=== PATIENT | female | born 2000 | race Caucasian/White ===

== ENCOUNTER → 2022-02-04 12:11 | Outpatient (CLI) | payer OTHER, SELFPAY ==
--- NOTE | 2022-02-04 12:16 | DI.US.S_ITS ---
PROCEDURE: US OB <= 14 WEEKS FETUS INDICATIONS: TV and abdominal US for dating and viability OUTSIDE/PRIOR DATING DATA: Last menstrual period (LMP): 11/28/2021 LMP-based estimated date of delivery (MELISSA): 09/04/2022. First dating scan (date and location): 02/04/2022. Estimated date of delivery (MELISSA) from first dating scan: 09/08/2022 The calculations are made using the ultrasound generated MELISSA of 09/08/2022. TECHNIQUE: Real-time scanning was performed of the fetus and maternal pelvic organs, with image documentation. Endovaginal scanning was also performed to better visualize the fetus and maternal ovaries. COMPARISON: None. FINDINGS: Gestational sac containing a fetus with a crown-rump length of 2.5 cm, corresponding to gestational age of 9 weeks 2 days. heart rate measured at 175 beats per minute. Ovaries normal. Left corpus luteum cyst. IMPRESSION: Single live intrauterine gestation with estimated ultrasound age of 9 weeks 2 days. We strive to produce accurate, complete, and clear reports of imaging services. To assist us in improving patient care, this report was composed using standard report templates and voice recognition software. Therefore, it may contain abnormal punctuation, insertions and/or omissions. Occasional wrong-word or sound-alike substitutions may occur. Though we review the report and make efforts to correct it, we do recommend that the report be read carefully in proper context to recognize any text inaccuracies. Dictated by: Francisco Dubois M.D. on 02/04/2022 at 13:27 Approved by: Francisco Dubois M.D. on 02/04/2022 at 13:30
== END ==
PROVIDERS: Referring Provider Obstetrics & Gynecology; Visit Provider Obstetrics & Gynecology
DX: Z34.81 Encounter for supervision of other normal pregnancy, first trimester (principal); Z3A.09 9 weeks gestation of pregnancy
CPT/HCPCS: 36415; 76801; 76817; 80055; 81003; 86787; 86803; 86850; 86900; 86901; 87086; 87389

== ENCOUNTER → 2022-02-04 12:47 | Outpatient (CLI) | payer OTHER, SELFPAY ==
[2022-02-04 13:42] LABS: Add Manual Diff / Slide Review NO; Basophils Absolute Auto 0 /uL (0-100); Basophils Percent Auto 0.3 % (0-2); Eosinophils Absolute Auto 100 /uL (0-450); Eosinophils Percent Auto 0.7 % (2-4); Hematocrit 38.2 % (36-46); Hemoglobin 13.7 g/dL (12.0-16.0); Lymphocytes Absolute Auto 1800 /uL (1100-4500); Lymphocytes Percent Auto 16.3 % (25-40); Mean Corpuscular HGB Conc 35.8 % (30-36); Mean Corpuscular Hemoglobin 30.2 PG (26-34); Mean Corpuscular Volume 84.5 fL (80-100); Monocytes Absolute Auto 700 /uL (0-900); Monocytes Percent Auto 6.4 % (3-14); Neutrophils Absolute Auto 8500 /uL (1500-7000); Neutrophils Percent Auto 76.3 % (50-75); Platelet Count 192 X10^3/uL (150-400); Red Blood Cell Count 4.52 X10^6/uL (4.0-5.2); Red Cell Distribution Width 13.2 % (11.6-14.8); White Blood Cell Count 11.2 X10^3/uL (4.5-11.0)
[2022-02-04 14:10] LABS: Appearance Urine UA CLEAR; Bilirubin Urine UA NEGATIVE (NEGATIVE); Color Urine UA YELLOW; Glucose Urine UA NEGATIVE (Negative); Ketones Urine UA NEGATIVE (NEGATIVE); Leukocyte Esterase Urine UA NEGATIVE (NEGATIVE); Nitrite Urine UA NEGATIVE (Negative); Occult Blood Urine UA NEGATIVE (Negative); Protein Urine UA NEGATIVE (Negative); Specific Gravity Urine UA <=1.005 (1.000-1.035); Urobilinogen Urine UA 0.2 E.U./dL (0.2)
[2022-02-04 15:47] LABS: Hepatitis B Surface Antigen NEGATIVE s/c (NEGATIVE); Rubella Antibody IgG 13.3 IU/mL (>15)
[2022-02-04 15:58] LABS: HIV 1 & 2 Ab/Ag 4th Gen Combo NEGATIVE (NEGATIVE); Hep C Virus Ab w/Reflex Quant NEGATIVE s/c (NEGATIVE)
[2022-02-05 08:28] LABS: RPR Screen Non Reactive (Non Reactive); Varicella IgG Antibody 195 index (Immune >165)
== END ==
PROVIDERS: Obstetrics & Gynecology; Referring Provider Family Medicine; Visit Provider Family Medicine
DX: Z34.81 Encounter for supervision of other normal pregnancy, first trimester (principal)
CPT/HCPCS: 36415; 80055; 81003; 86787; 86803; 86850; 86900; 86901; 87086; 87389

== ENCOUNTER → 2022-04-22 10:31 | Outpatient (CLI) | payer OTHER, SELFPAY ==
--- NOTE | 2022-04-22 10:32 | DI.US.S_ITS ---
PROCEDURE: US OB >= 14 WEEKS FETUS INDICATIONS: ANATOMY OUTSIDE/PRIOR DATING DATA: Last menstrual period (LMP): 11/28/2021 LMP-based estimated date of delivery (MELISSA): 09/04/2022. First dating scan (date and location): 02/04/2022. Estimated date of delivery (MELISSA) from first dating scan: 09/08/2022. The calculations are made using the ultrasound MELISSA of 09/08/2022. TECHNIQUE: Real-time scanning was performed of the fetus, with image documentation and biometric measurements. COMPARISON: [facility], OB <= 14 WEEKS FETUS, 02/04/2022, 12:26. FINDINGS: General: A single living intrauterine gestation is present. Presentation: breech. Placenta: Placental position is anterior, without previa. Amniotic fluid index: 16 cm, normal range is 5-24 cm. Single deepest vertical pocket is 5.9 cm. heart rate: 147 beats per minute. Maternal cervical canal: 3.2 cm long. Normal lower limit is 2.5 cm. biometrics: Biparietal diameter: 20 weeks 4 days Head circumference: 20 weeks 3 days Abdominal circumference: 21 weeks 1 day Femur length: 19 weeks 6 days Clinically estimated gestational age: 20 weeks 1 day Composite gestational age from present scan: 20 weeks 4 days Estimated weight and percentile: 360 g; 68th percentile Anatomic survey: Neuro: Ventricles are non-dilated at less than 10 mm. Cisterna magna is normal at 3-11 mm. Cerebellum is normal in size and morphology. Nuchal skin fold: Normal at less than 6 mm between 14-21 weeks gestational age. Face: Nose and lips, facial profile are normal. Spine: No evidence for spina bifida. Heart: 4-chambered heart is present, with normal ventricular outflow tracts. Diaphragm: Diaphragm is intact. Stomach: Left-sided stomach is present with small amount of intraluminal debris Kidneys: No hydronephrosis. Normal is less than 5 mm in 2nd trimester, less than 7 mm in 3rd trimester. Cord: 3-vessel cord has orthotopic insertion. Bladder: Normal in size. Extremities: All 4 extremities identified. IMPRESSION: 1. Single living IUP redemonstrated and interval growth is normal. 2. Small amount of intraluminal debris within the stomach; otherwise normal anatomic survey. We strive to produce accurate, complete, and clear reports of imaging services. To assist us in improving patient care, this report was composed using standard report templates and voice recognition software. Therefore, it may contain abnormal punctuation, insertions and/or omissions. Occasional wrong-word or sound-alike substitutions may occur. Though we review the report and make efforts to correct it, we do recommend that the report be read carefully in proper context to recognize any text inaccuracies. Dictated by: Dick ELAINE Interpreted: Ming Brooks MD on 04/22/2022 at 12:23 Transcribed by: BRYANT on 04/22/2022 at 12:26 Approved by: Ming Brooks M.D. on 04/22/2022 at 21:20
== END ==
PROVIDERS: Referring Provider Nurse Practitioner Obstetrics & Gynecology; Visit Provider Nurse Practitioner Obstetrics & Gynecology
DX: Z34.82 Encounter for supervision of other normal pregnancy, second trimester (principal); Z3A.20 20 weeks gestation of pregnancy
CPT/HCPCS: 76811

== ENCOUNTER 2022-09-10 14:49 | Inpatient (IN) | payer OTHER, SELFPAY ==
--- NOTE | 2022-09-10 15:06 | PM.OBHP.1 ---
OB HPI Date/Time Date of admission: 09/10/22 Date Patient Seen: 09/10/22 Time Patient Seen: 15:06 History of Present Condition Chief complaint: OBS : 2 Para: 1 Estimated Date of Delivery: 09/04/22 Estimated Gestational Age (weeks): 40w6d Narrative: Helen Romero is a 22 year old female, at 40w6d by LMP and early ultrasound. She has been taj all day, and called with increasing contractions, here to evaluate labor progress. At home, contractions were every 4-5 minutes for multiple hours, getting progressively painful. She is here with her , Doni. She has had a normal . She thinks this baby is about the same size as her first. History of Present care: good care, initiated at week # (14), number of visits (12) and pounds weight gain (35) Dating criteria: LMP confirmed by 1st trimester US Ultrasounds: normal mid trimester US Obstetrical complications: none Medical complications: none Preadmission Labs Blood type: 0 (-) negative -: Antibody screen: negative, GBS status: negative, HBsAG: negative, HIV: negative and RPR/VDLR: negative -: Rubella: equivocal and Varicella: immune HCT: 33.9 HCAB: negative Cell-free DNA: negative 1 hr GTT: 55 Prior (ies) History: with 2nd degree lac and shoulder dystocia resolved with Angélica in 03/2020. Baby was 8#14 at 40w6d. Evaluation Evaluation Baseline heart rate: 145 Variability: Moderate (11-25) monitor accelerations: Present Monitor Decelerations: Absent Contraction Frequency (minutes): 4 Uterine Contraction Intensity: Strong/Firm Status: Category l Dilation (cm): 6 Effacement (%): 80 Dilation: >/=5 cm Effacement: >/=80% station: -2 Position of cervix: mid Consistency: soft Preston score: 10 PFSH Medical History Anemia affecting first (~2006) Irregular menstrual cycle (~2019) Irritable bowel syndrome (~2011) depression Rh negative state in antepartum period Surgical History Anesthesia History of adenoidectomy (~2001) History of endoscopy (~2012) History of tonsillectomy (~2004) Family History Grandfather Prostate cancer Lung cancer Grandfather Prostate cancer Mother hemorrhage Grandmother Multiple sclerosis Social History marital status: number of children: 1 household members: spouse and children lives independently: Yes housing: house pets and animals: Yes (1 dog ) education level: high school occupational status: employed current occupational exposures/hazards: No special justin needs: No seatbelt use: always water heater temp set < 120 deg: Yes working smoke detector in home: Yes fire extinguisher in home: Yes carbon monox detector in home: Yes firearms in home: Yes firearms unloaded and locked: Yes do you feel safe at home: Yes Smoking Status: Never smoker second hand exposure: No alcohol intake: former substance use type: marijuana (previously) during the past year weight has: remained stable well-balanced diet: daily or most days daily servings fruits/ve-4 caffeine: Yes Type(s) of exercise: walking and running frequency: 3-4 times per week Meds Home Medications and Allergies Home Medications Medication Instructions Recorded Confirmed Type ferrous sulfate 325 mg (65 mg 325 mg PO Q OTHER DAY 01/19/22 01/19/22 History iron) tablet prenat.vits,mukul,mit-[id number]-[id number] 1 tab PO DAILY 01/19/22 01/19/22 History Allergies Allergy/AdvReac Type Severity Reaction Status Date / Time No Known Allergies Allergy Verified 01/19/22 12:00 Review of Systems Review of Systems ROS: Yes All systems reviewed with the patient and are negative except as otherwise documented OB Exam Vital signs Blood Pressure: 128/74 Pulse Rate: 98 Respiratory Rate: 16 Temperature: 97.8 F HENMT Head: normocephalic Mouth: moist mucous membranes Eyes General: appearance normal, both eyes and all related structures Resp Effort & Inspection: normal respiratory effort and able to speak in complete sentences Cardio Rate: regular rate Rhythm: regular rhythm Heart Sounds: S1 normal and S2 normal Extremities Lower extremity: Yes normal to inspection DTR's: Rt Patellar: 2+ and Lt Patellar: 2+ GI Other: Gravid External Female Exam: Yes normal external appearance Presentation: vertex Estimated Weight (lbs): 9 (8#14) Other: Intact membranes Objective Labs Result Diagrams: 09/10/22 15:20 Assessment and Plan Assessment and Plan Assessment and Plan narrative: 22 year old at 40w6d Spontaneous, active labor GBS neg Rubella non-immune Rh negative FHR Cat 1, green Intact membranes Plan: Admit to L&D Intermittent monitoring IV to be placed, admit labs collected Anticipate Time Spent with Patient Total time spent with greater than 50% in coordination of care (as documented) at patient's floor/unit and/or counseling patient:: 15-24 minutes
[2022-09-10 15:29] VITALS: BP 128/74; PULSE 98; RESP 16; TEMP 36.6
[2022-09-10 15:42] LABS: Add Manual Diff / Slide Review NO; Basophils Absolute Auto 100 /uL (0-100); Basophils Percent Auto 0.3 % (0-2); Eosinophils Absolute Auto 100 /uL (0-450); Eosinophils Percent Auto 0.6 % (2-4); Hematocrit 35.1 % (36-46); Hemoglobin 12.3 g/dL (12.0-16.0); Lymphocytes Absolute Auto 2300 /uL (1100-4500); Lymphocytes Percent Auto 11.8 % (25-40); Mean Corpuscular HGB Conc 35.1 % (30-36); Mean Corpuscular Volume 91.3 fL (80-100); Monocytes Absolute Auto 1200 /uL (0-900); Monocytes Percent Auto 6.2 % (3-14); Neutrophils Absolute Auto 15500 /uL (1500-7000); Neutrophils Percent Auto 81.1 % (50-75); Platelet Count 124 X10^3/uL (150-400); Red Blood Cell Count 3.84 X10^6/uL (4.0-5.2); Red Cell Distribution Width 13.6 % (11.6-14.8); White Blood Cell Count 19.1 X10^3/uL (4.5-11.0)
[2022-09-10 15:54] LABS: COVID19 -Nasal RAPID Negative (Negative)
[2022-09-10 15:59] VITALS: BP 128/74
--- NOTE | 2022-09-10 19:48 | PM.OBPNLAB ---
Date/Time Date Patient Seen: 09/10/22 Time Patient Seen: 19:48 Pain Control Pain control: tolerating well Comments: S: Helen feeling increasing pelvic pressure. Contractions increasing in intensity. Feeling contractions every 2-3 minuutes. Walking and sitting on Cuby. VS: BP 128/79; HR 98; Temp 36.6C Pelvic Exam Dilation (cm): 7.5 Effacement (%): 90 station: -1 Amniotic membrane status: Intact Comments: soft, mid Contractions Contraction frequency (min): 2 Contraction intensity: Strong/Firm Status status: Category l Assessment and Plan Comments: ASSESSMENT: 33 yo at 40w6d Active labor. Progressing normally. Membranes intact GBS neg Reassuring by intermittent auscultation PLAN: Continue to labor Anticipate vaginal
--- NOTE | 2022-09-11 00:24 | P.PCNOB_ITS ---
Events: Other (Good care. Rh negative. Rubella non-immune. ) Labor & Delivery Delivery date: 09/10/22 Intrapartal Events: None Cervical ripening method: none Induction method: none Delivery monitor: external FHT and external uterine Route of delivery: L&D Laceration Description: Periurethral - 1st Degree Delivery repair: other (none) Quantitative Blood Loss: 400 Anesthesia Type: None Complications: none Narrative: Helen labored well throughout the day. FHR reassuring by doppler throughout labor. SROM of clear fluid with spontaneous urge to push soon after. Leaning on the CUB with support from Doni, Helen pushed effectively to deliver her vigorous son, Reina, at 2333. Reina was handed through her legs for Helen to receive. Perineum intact. NAVEEN clamped and Doni cut the cord. Placenta delivered spontaneously, Agustin at 2345. Pitocin given IV for third stage management. Intact perineum. L periurethral laceration hemostatic and not repaired. QBL 400 mL. Helen and Doni left with baby Reina and initiated approx 30 min after . [place] Baby 1: gender: Male Presentation: vertex Position: Left Occiput Anterior Placenta delivery description: Spontaneous Cord Vessel Description: 3 Vessels score (1 min): 8 score (5 min): 9 Narrative: Plan for aftercare: Routine care
[2022-09-11 01:58] VITALS: TEMP 36.7
[2022-09-11] MEDS: ACETAMINOPHEN 325 MG TABLET 650 MG PO (01:58)
[2022-09-11] MEDS: KETOROLAC 30 MG/ML VIAL IV (01:58)
[2022-09-11] MEDS: IBUPROFEN 600 MG TABLET PO ×2 (08:26→14:04)
--- NOTE | 2022-09-11 14:57 | PM.OBDS.1 ---
Discharge Providers Provider Date of admission: 09/10/22 14:49 Discharge Date: 09/11/22 Primary care physician: Javy VALENTIN Provider Consults: 09/11/22 23:52 Consult to Telemarketing Fundraiser Routine Comment: Discharge provider: Berenice Grayson CNM, ARNP Summary Hospital Course Date Patient Seen: 09/11/22 Time Patient Seen: 14:58 Diagnoses: O80 Hospital Course: Helen arrived in spontaneous labor. Progressed well to complete and had a short 2nd stage with intact perineum and normal blood loss. Normal course. well. Pain well controlled with PO medications. Light bleeding w/o clots. Independently stooling and voiding. Peripartum Data Delivery Method: Natural Vaginal Laceration Description: None and Periurethral - 1st Degree Episiotomy description: None Procedures: NSVB complications: none 1: Gender: Male Disposition of : home Discharge Diagnosis (1) Encounter for full-term uncomplicated delivery: Start Date: 09/10/22 Start Time: 23:33 Status: Acute Problem Details: Normal course. (2) RhD negative: Status: Acute Problem Details: Rh pos. Rhogam given prior to discharge. (3) Rubella non-immune status, delivered, current hospitalization: Status: Acute Problem Details: MMR given prior to discharge. Status at Discharge Cognitive/behavioral status at discharge: oriented and calm Functional status at discharge: independent ambulation Overall status at discharge: patient is progressing back to baseline Time Spent with Patient Time attestation: Total time spent providing and/or coordinating discharge services: Time spent: Less than 30 minutes Specific discharge activities: discharge teaching Objective Labs Result Diagrams: 09/10/22 15:20 Labs: Laboratory Results - last 24 hr 09/10/22 09/10/22 09/10/22 15:20 15:20 15:20 WBC 19.1 H RBC 3.84 L Hgb 12.3 Hct 35.1 L MCV 91.3 MCH 32.0 MCHC 35.1 RDW 13.6 Plt Count 124 L Neut % (Auto) 81.1 H Lymph % (Auto) 11.8 L [place] % (Auto) 6.2 Eos % (Auto) 0.6 L Baso % (Auto) 0.3 Neut # (Auto) 22266 H Lymph # (Auto) 2300 [place] # (Auto) 1200 H Eos # (Auto) 100 Baso # (Auto) 100 SARS-CoV-2 (PCR) Negative Blood Type O Negative Antibody Screen Positive Antibody Identification Anti-D Maternal Bleed 09/11/22 07:00 WBC RBC Hgb Hct MCV MCH MCHC RDW Plt Count Neut % (Auto) Lymph % (Auto) [place] % (Auto) Eos % (Auto) Baso % (Auto) Neut # (Auto) Lymph # (Auto) [place] # (Auto) Eos # (Auto) Baso # (Auto) SARS-CoV-2 (PCR) Blood Type Antibody Screen Antibody Identification Maternal Bleed Negative Exam Vital Signs (past 8 hours): 100/64, 68 bpm, 16/min, 97.6 F temporal, O2 sats 99% Other: Fundus firm at U, midline. Lochia scant Perineum intact with minimal edema Discharge Plan Discharge Plan Patient Disposition: Home Provider Discharge Comment: after Rhogam and MMR Discharge orders & Medications Prescriptions: New ibuprofen 600 mg Tablet 600 mg PO Q6HR PRN (Reason: Pain, Mild (1-3)) 14 Days Qty: 60 0RF Continued prenat.vits,mukul,jsq-ifbn-hhwts Tablet 1 tab PO DAILY ferrous sulfate 325 mg (65 mg iron) tablet 325 mg PO Q OTHER DAY Label Comments: discontinued medication Follow up/Referrals: ProviderJavy [Primary Care Provider] - Berenice Grayson CNM, HUMAN RESOURCES OPERATIONS SPECIALIST [Advanced Communications Coordinator] - (Follow up in 2 weeks on 09/24/22 at 12: 45 Follow up in 6 weeks on 10/22/22 at 2:45 pm) Diet/Activity/Treatments Diet: Diet as Tolerated Activity: Avoid intercourse until bleeding stops. Low newman activity x 2 weeks. Skin/Wound/Dressing Care Report to your healthcare provider any signs of infection, such as:: chills, fever, increased pain and unusual redness Visit Report/Discharge Packet Instructions: DI for Depression Stand Alone Forms: Patient Portal/API, Stroke Signs & Symptoms Discharge Data Primary Care Provider: ProviderJavy
[2022-09-11] MEDS: MEASLES,MUMPS,RUBELLA VACC/PF 0.5 ML VIAL SUBCUT (17:39)
[2022-09-11] MEDS: RHO(D) IMMUNE GLOBULIN 1,500 UNIT SYRINGE 1500 UNIT IM (17:40)
== END 2022-09-11 18:00 | disposition home or self-care (01) | DRG 807 ==
PROVIDERS: Advanced Practice Midwife; Admitting Provider Nurse Practitioner Obstetrics & Gynecology; Referring Provider Nurse Practitioner Obstetrics & Gynecology; Visit Provider Nurse Practitioner Obstetrics & Gynecology
DX: O36.0130 Maternal care for anti-D [Rh] antibodies, third trimester, not applicable or unspecified (principal); Z37.0 Single live birth; Z3A.40 40 weeks gestation of pregnancy; Z67.41 Type O blood, Rh negative; Z23 Encounter for immunization; Z20.822 Contact with and (suspected) exposure to COVID-19
CPT/HCPCS: 36415; 59050; 85025; 85461; 86850; 86870; 86900; 86901; 87635; C9803; G0379; J1885; J2790

== ENCOUNTER 2025-04-28 19:02 | Inpatient (IN) | payer OTHER, SELFPAY ==
[2025-04-28] VITALS (10 sets, daily range): BP systolic 98–117; BP diastolic 58–80; PULSE 74–96; RESP 16–35; TEMP 36.8; O2SAT 77–100; BMI 20.5
--- NOTE | 2025-04-28 19:30 | EKG_ITS ---
[address] [address] Test Date: 2025-04-28 Pat Name: Helen Romero Department: [facility] Room: Gender: Female Dental Instructor: MATT JIMENEZ : 2000 Requested By: Order Number: [id number] Reading MD: Darrel Stafford Measurements Intervals [place] Rate: 74 P: 78 CA: 144 QRS: 85 QRSD: 90 T: 68 QT: 376 QTc: 417 Interpretive Statements Normal sinus rhythm Electronically Signed On 05-06-2025 16:03:39 PDT by Darrel Stafford
[2025-04-28 19:34] LABS: Add Manual Diff / Slide Review NO; Hematocrit 39.1 % (36-46); Hemoglobin 13.4 g/dL (12.0-16.0); Lymphocytes Absolute Auto 2400 /uL (1100-4500); Mean Corpuscular HGB Conc 34.3 % (30-36); Mean Corpuscular Hemoglobin 29.5 PG (26-34); Mean Corpuscular Volume 86.1 fL (80-100); Platelet Count 165 X10^3/uL (150-400)
[2025-04-28] MEDS: SODIUM CHLORIDE 0.9% 1,000 ML 1000 ML IV (19:35)
[2025-04-28 19:41] LABS: Alanine Aminotransferase 35 IU/L (<35); Albumin 4.9 g/dL (3.5-5.0); Albumin Globulin Ratio 1.5 (1.0-2.8); Alkaline Phosphatase 64 U/L (38-126); Blood Urea Nitrogen 15 mg/dL (7-17); Calcium 9.6 mg/dL (8.4-10.2); Carbon Dioxide 25 mmol/L (22-32); Chloride 103 mmol/L (98-107); Estimated Glomerular Filt Rate > 60 mL/min (>60); Globulin 3.2 g/dL (1.7-4.1); Glucose 94 mg/dL (70-99); HEMOLYSIS < 15 (0-50); Lipase 113 U/L (23-300); Potassium 3.3 mmol/L (3.4-5.1); Sodium 140 mmol/L (137-145); Total Protein 8.1 g/dL (6.3-8.2)
--- NOTE | 2025-04-28 21:20 | ED_ITS ---
HPI - Abdominal Pain General Chief Complaint: Abdominal Pain Stated Complaint: intense pain under ribs Time Seen by Provider: 04/28/25 19:21 Source: patient, RN notes reviewed and old records reviewed Mode of arrival: Ambulatory Limitations: no limitations History of Present Illness HPI narrative: 24-year-old female who presents with complaint of pain that started epigastric and radiating to the right underneath her ribs toward her right back. She states she had diarrhea earlier in the evening and then at about 1900 developed quite a bit of pain states she got very sweaty, states that improved but pain has been persistent. Has not had similar pain in the past. States no black or bloody stools. No dysuria urgency or frequency. No new changes to menses. Patient states she has not had any fevers. Has a history of IBS states she takes Imodium intermittently but no other daily medications. Related Data Home Medications ?Medication ?Instructions ?Recorded ?Confirmed ferrous sulfate 325 mg (65 mg 325 mg PO Q OTHER DAY 09/10/22 iron) tablet prenat.vits,mukul,[id number] 1 tab PO DAILY 01/19/22 09/10/22 Allergies Allergy/AdvReac Type Severity Reaction Status Date / Time No Known Allergies Allergy Verified 01/19/22 12:00 Review of Systems Review of Systems ROS Unobtainable: All systems reviewed & are unremarkable except as noted in HPI and below Patient History Medical History Irregular menstrual cycle (~2019) Irritable bowel syndrome (~2011) depression Anemia affecting first (~2006) Rh negative state in antepartum period Surgical History Anesthesia History of endoscopy (~2012) History of adenoidectomy (~2001) History of tonsillectomy (~2004) Family History Grandfather Prostate cancer Lung cancer Grandfather Prostate cancer Mother hemorrhage Grandmother Multiple sclerosis Social History marital status: number of children: 1 household members: spouse and children lives independently: Yes housing: house pets and animals: Yes (1 dog ) education level: high school occupational status: employed current occupational exposures/hazards: No special justin needs: No seatbelt use: always water heater temp set < 120 deg: Yes working smoke detector in home: Yes fire extinguisher in home: Yes carbon monox detector in home: Yes firearms in home: Yes firearms unloaded and locked: Yes do you feel safe at home: Yes Smoking Status: Never smoker second hand exposure: No alcohol intake: former substance use type: marijuana (previously) during the past year weight has: remained stable well-balanced diet: daily or most days daily servings fruits/ve-4 caffeine: Yes Type(s) of exercise: walking and running frequency: 3-4 times per week Smoking Status: Never smoker Exam Narrative Exam Narrative: GENERAL: Alert and oriented x three, female in mild distress HEENT: Head normocephalic, atraumatic, EOMI, pupils reactive, face symmetric, moist mucous membranes NECK: Supple, full range of motion CARDIOVASCULAR: Regular rate and rhythm without murmurs, rubs or gallops. RESPIRATORY: Breath sounds equal bilaterally, no wheezes rales or rhonchi. ABDOMEN: Soft, nontender. Normoactive bowel sounds all 4 quadrants. No guarding or rebound, rigidity, no mass : No CVA tenderness EXTREMITIES: Normal range of motion, no clubbing or edema. Neurovascularly intact NEUROLOGICAL: Cranial nerves II through XII grossly intact. Moving all extremities SKIN: Warm, dry, no petechiae, no rashes or lesions. Initial Vital Signs Initial Vital Signs: Vital Signs Temperature 98.3 F 04/28/25 19:06 Pulse Rate 81 04/28/25 19:06 Respiratory Rate 20 04/28/25 19:06 Blood Pressure 109/80 04/28/25 19:06 Pulse Oximetry 100 04/28/25 19:06 Oxygen Delivery Method Room Air 04/28/25 19:06 Course Orders Ordered: ED Orders 04/28/25 19:11 EKG-12 Lead Stat 04/28/25 19:20 Complete Blood Count AUTO DIFF Stat Comprehensive Metabolic Panel Stat Lipase Stat 04/28/25 20:30 Urine Microscopic Stat 04/28/25 21:32 US abdomen limited Stat Sodium Chloride (Normal Saline 0.9%) 1,000 mls @ 125 mls/hr IV CONT SHAMIR Piperacillin Sod/Tazobactam (Sod 4.5 gm/ Sodium Chloride) 100 mls @ 25 mls/hr IV Q8H SHAMIR Ketorolac Tromethamine (Ketorolac 30 Mg/Ml Vial) 15 mg IV Q6H PRN PRN Reason: Pain, Moderate (4-6) Stop: 05/03/25 23:19 Ondansetron HCl (Ondansetron 4 Mg/2 Ml Inj) 4 mg IV NOW PRN PRN Reason: Nausea And Vomiting Ondansetron HCl (Ondansetron 4 Mg/2 Ml Inj) 4 mg IV Q4HR PRN PRN Reason: Nausea And Vomiting Discontinued Medications Sodium Chloride (Normal Saline 0.9%) 1,000 mls @ 1,000 mls/hr IV BOLUS ONE Stop: 04/28/25 20:20 Last Infusion: 04/28/25 20:48 Dose: Infused Documented By: Admin: 04/28/25 19:35 Dose: 1,000 mls/hr Documented By: JEROME Piperacillin Sod/Tazobactam (Sod 4.5 gm/ Sodium Chloride) 100 mls @ 200 mls/hr IV NOW ONE Stop: 04/28/25 23:16 Ketorolac Tromethamine (Ketorolac 30 Mg/Ml Vial) 15 mg IV NOW ONE Stop: 04/28/25 23:07 Last Admin: 04/28/25 23:15 Dose: 15 mg Ondansetron HCl (Ondansetron 4 Mg Odt) 4 mg PO NOW PRN PRN Reason: Nausea And Vomiting Vital Signs Vital signs: Vital Signs - 8 hr 04/28/25 19:06 04/28/25 20:42 04/28/25 20:48 Temperature 98.3 F Pulse Rate 81 79 Respiratory Rate 20 21 Blood Pressure 109/80 102/59 L Pulse Oximetry 100 100 Oxygen Delivery Method Room Air 04/28/25 20:48 Temperature Pulse Rate 77 Respiratory Rate 24 Blood Pressure Pulse Oximetry 100 Oxygen Delivery Method Room Air MDM - Abdominal Pain Lab Data 04/28/25 19:20 04/28/25 19:20 Labs: Lab Results 04/28/25 04/28/25 Range/Units 19:20 20:30 WBC 9.5 (4.5-11.0) X10^3/uL RBC 4.54 (4.0-5.2) X10^6/uL Hgb 13.4 (12.0-16.0) g/dL Hct 39.1 (36-46) % MCV 86.1 (80-100) fL MCH 29.5 (26-34) PG MCHC 34.3 (30-36) % RDW 12.7 (11.6-14.8) % Plt Count 165 (150-400) X10^3/uL Neut % (Auto) 66.2 (50-75) % Lymph % (Auto) 25.7 (25-40) % [place] % (Auto) 6.6 (3-14) % Eos % (Auto) 1.0 L (2-4) % Baso % (Auto) 0.5 (0-2) % Neut # (Auto) 6300 (0512-6625) /uL Lymph # (Auto) 2400 (8036-9006) /uL [place] # (Auto) 600 (0-900) /uL Eos # (Auto) 100 (0-450) /uL Baso # (Auto) 0 (0-100) /uL Sodium 140 (137-145) mmol/L Potassium 3.3 L (3.4-5.1) mmol/L Chloride 103 (98-107) mmol/L Carbon Dioxide 25 (22-32) mmol/L BUN 15 (7-17) mg/dL Creatinine 0.72 (0.52-1.04) mg/dL Estimated GFR > 60 (>60) mL/min BUN/Creatinine Ratio 20.8 (6-22) Glucose 94 (70-99) mg/dL Calcium 9.6 (8.4-10.2) mg/dL Total Bilirubin 2.1 H (0.2-1.3) mg/dL AST 72 H (14-36) IU/L ALT 35 H (<35) IU/L Alkaline Phosphatase 64 (38-126) U/L Total Protein 8.1 (6.3-8.2) g/dL Albumin 4.9 (3.5-5.0) g/dL Globulin 3.2 (1.7-4.1) g/dL Albumin/Globulin Ratio 1.5 (1.0-2.8) Lipase 113 (23-300) U/L Urine RBC None seen (0-5/HPF) Urine WBC None seen (0-5/HPF) Ur Squamous Epith Cells 1-5 /hpf (0-5/HPF) Urine Bacteria None seen (None) Urine Mucus 1+ H (Negative) Vol Urine Centrifuged 10ml (spun) Point of care testing: Point of Care Testing Test Results Negative Urine Dip Bedside Urine Glucose Negative Bedside Urine Bilirubin - Negative Bedside Urine Ketone - Negative Urine Specific [place] 1.030 Bedside Urine Occult Blood - Negative Bedside Urine pH 6 Bedside Urine Protein + 30 Bedside Urine Urobilinogen - Negative Bedside Urine Nitrite - Negative Bedside Urine Leukocytes - Negative Esterase ECG Data Attestation: I personally reviewed and interpreted this ECG as follows: Prior ECG tracings: not available for review Interpretation: Since with a rate of 74 [place] 144 QRS of 90 QTC of 417, no acute ST elevation depression. No prior for comparison. MDM Narrative Medical decision making narrative: EKG shows sinus rhythm rate of 74. Labs show normal white count, hemoglobin and platelets, chemistry with potassium of 3.3 otherwise appropriate bilirubin is 2.1 AST 72 ALT is 35 alk-phos is 64 lipase is 113. Point of care urine shows protein no nitrates or leuks, negative for blood. 1+ mucus, no red cells no white cells 1-5 squamous no bacteria. Urine is negative. Upper quadrant ultrasound shows possible mild gallbladder wall edema without significant wall thickening however no gallstones are present gallbladder is not distended findings are nonspecific consider short term follow up with the ultrasound. Patient received fluids. Patient states pain is still present but somewhat improved. Spoke with general surgery, Dr. Godinez @ after you have patient's workup we would like to bring patient in under general surgery with IV antibiotics and discussed with the patient about removing her gallbladder in the a.m.. Request bridging orders. Spoke with patient she is agreeable. All questions answered. Discharge Plan Departure Patient Disposition: Admitted As Inpatient Clinical Impression: Acute cholecystitis Admit Date/Time: 04/28/25 23:18 Admit Provider: Miguelito Godinez
--- NOTE | 2025-04-28 21:32 | DI.US.S_ITS ---
PROCEDURE: US ABDOMEN LIMITED INDICATIONS: RUQ pain, elevated bili/ast/alt TECHNIQUE: Real-time scanning was performed of the abdominal and retroperitoneal organs, with image documentation. COMPARISON: None. FINDINGS: Liver: Liver is normal in size and homogeneous in echotexture. Gallbladder: No gallstones. Possible mild gallbladder wall edema without significant thickening. No pericholecystic edema. Negative sonographic Peoples's sign. Biliary ducts: Intrahepatic bile ducts are non-dilated. Extrahepatic bile duct caliber measures 2 mm. Normal is 6-7 mm or less in diameter, or 10 mm or less post-cholecystectomy. Pancreas: Visualized portions of the pancreas are sonographically normal. Miscellaneous: No free abdominal fluid. IMPRESSION: Possible mild gallbladder wall edema without significant wall thickening. However, no gallstones are present the gallbladder is not distended. Findings are nonspecific. Consider short-term follow-up ultrasound. Dictated by: Dayton Amor M.D. on 04/28/2025 at 22:42 Approved by: Dayton Amor M.D. on 04/28/2025 at 22:44
--- NOTE | 2025-04-28 22:11 | PC.NURSE ---
Pt to US via ED stretcher with traffic survey technician
[2025-04-28] MEDS: KETOROLAC 30 MG/ML VIAL 15 MG IV (23:15)
[2025-04-28] MEDS: PIPERACILLIN/TAZO 4.5 GM in SODIUM CHLORIDE 0.9% 100 ML IV (23:37)
[2025-04-29] VITALS (11 sets, daily range): BP systolic 104–126; BP diastolic 61–94; PULSE 64–89; RESP 12–16; TEMP 36.4–37.1; O2SAT 96–100; BMI 20.5
--- NOTE | 2025-04-29 | PATH_ITS ---
[facility] Accession Number: [id number] No. of containers..01 Tissue . 01 Material submitted: . gallbladder - GALLBLADDER . 01 Diagnosis: GALLBLADDER, CHOLECYSTECTOMY: Mild chronic cholecystitis. Lymph node with necrotizing granulomas and possible fungal forms, see note. No malignancy is identified. . . Note: In the lymph node, there are large, distinct, and well-demarcated granulomas with a prominent fibrotic, hyalinized, and hypocellular rim with central necrosis that lacks associated neutrophilic inflammation. There are rare yeast-like forms in the necrotic centers of the granulomas, highlighted on a GMS special stain for fungus. They are mostly solitary and are of intermediate size, perhaps slighlty smaller than an erythrocyte. However, the possibility that these are artifactual mimics of fungal forms cannot be entirely excluded. Furthermore, even if they are truly fungal organisms, classification by histopathology could be unreliable. The specimen will be sent for molecular microbiology testing, which may provide more specific information. Results will be documented in an addendum when available. . An AFB stain is negative for mycobacteria (control positive). . . Intradepartmental review was obtained with Dr.s Gordillo, Kylie, and Juan. MRV 05/10/2025 1210 Local . 01 Electronically signed: . Beto Echeverria MD, Dermatopathologist NPI- [id number] . 01 Gross description: . Received in formalin with two identifiers and gallbladder is an intact gallbladder, 7.2 x 2.7 x 2.0 cm, with a violaceous intact external surface. The cystic duct margin is inked blue. A yanes to violaceous pericystic lymph node candidate measures 1.0 cm in greatest dimension and the cystic duct margin is inked blue. The lumen contains dark green viscous bile with no calculi identified in the lumen or the container. The mucosa is green and velvety with no discoloration, polyps, or lesions identified. The martinez average 0.4 cm thick. Spray Machine Tender sections to include the cystic duct margin, entire bisected lymph node candidate, and full thickness sections in A1. ([id number]) /MRV 05/07/2025 1447 Local . 01 Pathologist provided ICD-10: K81.1, I88.8 . 01 CPT . 588667, 366066, 597577 Specimen Comment: A courtesy copy of this report has been sent to [facility] Pathology Performed at: [address] [facility], [place], [place] [id number] MD Cliff Martinez MD Phone: [phone]
[2025-04-29] MEDS: SODIUM CHLORIDE 0.9% 1,000 ML 125 ML IV ×2 (00:30→08:23)
[2025-04-29] MEDS: KETOROLAC 30 MG/ML VIAL 15 MG IV (03:59)
[2025-04-29] MEDS: PIPERACILLIN/TAZO 3.375 GM in SODIUM CHLORIDE 0.9% 100 ML IV (08:15)
[2025-04-29] MEDS: POTASSIUM CHLORIDE 20 MEQ TAB 40 MEQ PO (08:15)
--- NOTE | 2025-04-29 08:28 | P.HP_ITS ---
History of Present Illness History of Present Illness Date Patient Seen: 04/29/25 Time Patient Seen: 08:28 Chief complaint: intense pain under ribs Narrative: 24yo F, admitted through ED with likely cholecystitis. C/O RUQ radiating into back, greasy foods bother her stomach, +nausea. U/S with gb wall edema, LFTs elevated. From ED: 24-year-old female who presents with complaint of pain that started epigastric and radiating to the right underneath her ribs toward her right back. She states she had diarrhea earlier in the evening and then at about 1900 developed quite a bit of pain states she got very sweaty, states that improved but pain has been persistent. Has not had similar pain in the past. States no black or bloody stools. No dysuria urgency or frequency. No new changes to menses. Patient states she has not had any fevers. Has a history of IBS states she takes Imodium intermittently but no other daily medications. [facility] Medical History Irregular menstrual cycle (~2019) Irritable bowel syndrome (~2011) depression Anemia affecting first (~2006) Rh negative state in antepartum period Surgical History Anesthesia History of endoscopy (~2012) History of adenoidectomy (~2001) History of tonsillectomy (~2004) Family History Grandfather Prostate cancer Lung cancer Grandfather Prostate cancer Mother hemorrhage Grandmother Multiple sclerosis Social History marital status: number of children: 1 household members: spouse and children lives independently: Yes housing: house pets and animals: Yes (1 dog ) education level: high school occupational status: employed current occupational exposures/hazards: No special justin needs: No seatbelt use: always water heater temp set < 120 deg: Yes working smoke detector in home: Yes fire extinguisher in home: Yes carbon monox detector in home: Yes firearms in home: Yes firearms unloaded and locked: Yes do you feel safe at home: Yes Smoking Status: Never smoker second hand exposure: No alcohol intake: former substance use type: marijuana (previously) during the past year weight has: remained stable well-balanced diet: daily or most days daily servings fruits/ve-4 caffeine: Yes Type(s) of exercise: walking and running frequency: 3-4 times per week Meds Home Medications and Allergies Allergies Allergy/AdvReac Type Severity Reaction Status Date / Time No Known Allergies Allergy Verified 01/19/22 12:00 Exam Vital Signs (past 8 hours): Oxygen Delivery Method Room Air Const General: healthy appearing and comfortable Orientation: alert and oriented x3 HENMT Head: normal to inspection Ears: hearing grossly normal bilaterally Eyes Visual Benoit: normal visual benoit by confrontation Conjunctivae: conjunctivae normal Sclera: sclerae normal (nonicteric) EOM: EOM intact bilaterally Neck Neck: normal visual inspection Resp Effort & Inspection: normal respiratory effort and able to speak in complete sentences Auscultation: clear to auscultation bilaterally Cardio Rate: regular rate GI Other: ABD: +Peoples's sign, no scars Extrem General: no pedal edema and no calf tenderness Objective Labs 04/28/25 19:20 04/28/25 19:20 Labs: Laboratory Results - last 24 hr 04/28/25 04/28/25 19:20 20:30 WBC 9.5 RBC 4.54 Hgb 13.4 Hct 39.1 MCV 86.1 MCH 29.5 MCHC 34.3 RDW 12.7 Plt Count 165 Neut % (Auto) 66.2 Lymph % (Auto) 25.7 [place] % (Auto) 6.6 Eos % (Auto) 1.0 L Baso % (Auto) 0.5 Neut # (Auto) 6300 Lymph # (Auto) 2400 [place] # (Auto) 600 Eos # (Auto) 100 Baso # (Auto) 0 Sodium 140 Potassium 3.3 L Chloride 103 Carbon Dioxide 25 BUN 15 Creatinine 0.72 Estimated GFR > 60 BUN/Creatinine Ratio 20.8 Glucose 94 Calcium 9.6 Total Bilirubin 2.1 H AST 72 H ALT 35 H Alkaline Phosphatase 64 Total Protein 8.1 Albumin 4.9 Globulin 3.2 Albumin/Globulin Ratio 1.5 Lipase 113 Urine RBC None seen Urine WBC None seen Ur Squamous Epith Cells 1-5 /hpf Urine Bacteria None seen Urine Mucus 1+ H Vol Urine Centrifuged 10ml (spun) Assessment & Plan Assessment and plan (1) Acute cholecystitis: Status: Acute Assessment & Plan narrative: Although she has no gallstones, her history, laboratory and exam are all consistent with cholecystitis. Strong FH for gallbladder disease. We discussed at length the options of observation, vs MRI/HIDA vs lap choley. Patient has chosen lap choley with cholangiogram. The risks, benefits and options regarding the procedure were explained to the patient in detail. Risk discussion included but not limited to: open surgery, injury to other organs, injury to the bile duct, drain, bile leak, abscess, missed diagnosis. The patient was encouraged to ask questions and they were answered to their satisfaction. The patient understands and is agreeable to proceed. Time-Based Coding :: [TOTAL MINUTES] spent with patient and on the chart (including review of chart, obtaining history, exam, reviewing outside data, placing orders, documenting exam and treatment plan, and counseling patient) on [DATE]. [employer]EE Insurance Application Investigator Document charge(s): Yes Charge Codes Initial inpatient/observation care: [id number]
--- NOTE | 2025-04-29 10:09 | DI.RAD.S_ITS ---
PROCEDURE: XR CHOLANGIOGRAM OPERATIVE INDICATIONS: Intra-operative cholangiogram, bili>2 COMPARISON: [facility], , US ABDOMEN LIMITED, 04/28/2025, 22:12. FINDINGS: Biliary ducts: The surgeon injected contrast into the biliary ducts after cannulation of the cystic duct stump. Visualized intra- and extrahepatic bile ducts are normal in caliber, without strictures. No intraluminal filling defects to suggest retained ductal stones or sludge. No evidence for iatrogenic ductal injury. Duodenum: Contrast flows promptly through the sphincter of Oddi into the duodenum, which appears normal in caliber. IMPRESSION: Unremarkable cholangiogram. Dictated by: Lesly Auguste M.D. on 04/29/2025 at 13:10 Approved by: Lesly Auguste M.D. on 04/29/2025 at 13:11
--- NOTE | 2025-04-29 10:42 | SUR.OPER ---
Supine on padded OR bed, head on pillow, arms padded and tucked at sides, legs uncrossed, safety belt at thigh, tape over blanket over lower legs . Surgeon in room at time of positioning, all pressure points padded and covered.
--- NOTE | 2025-04-29 11:01 | DIET.CONS ---
Dietary Consultation Note Admission Date: 04/28/2025 23:18 Assessment: 24 y F admitted for cholecystitis. Dietitian screened for low MNA score. Pt in surgery this morning per RN, EMR reviewed. Hx of IBS. Per MNA - severe decrease in PO intakes but no weight loss. Ht: 157.48 cm Wt: 50.802 kg BMI: 20.5 UBW: No recent wt hx Last BM: 04/28/25 (04/29/25 09:31) MNA: 10 Jean Score: 23 Diet: 04/28/25 23:18 NPO Diet Diet Modifications: NPO Type: Strict Nutrition Percent Meal Consumed NPO 04/29/25 06:00 Labs: RBC 4.54 X10^6/uL (4.0-5.2) 04/28/25 19:20 Hgb 13.4 g/dL (12.0-16.0) 04/28/25 19:20 Hct 39.1 % (36-46) 04/28/25 19:20 Creatinine 0.72 mg/dL (0.52-1.04) 04/28/25 19:20 Monitoring/Evaluations: will f/u for full assessment to identify if any nutrition interventions needed Electronically Signed by: Mattie Mccabe 04/29/25 11:01 Clinical Dietitian [address] [id number]
[2025-04-29] MEDS: LACTATED RINGERS 1,000 ML 42 ML IV (11:28)
--- NOTE | 2025-04-29 12:01 | PM.OP.1 ---
Operative Date/Time/Diagnoses Date of procedure: 04/29/25 Time of procedure: 12:01 Pre-op diagnosis: Acute cholecystitis Post-op diagnosis: same Procedure & Clinicians Procedure: Lap choley with cholangiogram Same procedure(s) as scheduled: Yes Indications: 24yo F with gallbladder wall edema on u/s and elevated LFTs, RUQ pain radiating to back, worse with meals. Surgeon: Miguelito Godinez Click Yes if Unassisted: Yes Anesthesia Type: General Operative Notes Findings: Acute cholecystitis, wall edema, free peritoneal fluid, normal cholangiogram Closure Type: primary Specimen(s): other (gallbladder) Applied: none Estimated Blood Loss (mL): 100 Procedure in detail: After informed consent and satisfactory general endotracheal anesthesia, the abdomen was prepped and draped in the usual sterile manner. Surgical time-out was performed with all team members in agreement. The patient received appropriate preoperative antibiotics and VTE prophylaxis. The pneumoperitoneum was established to a pressure of 10 under direct vision using the [place] direct trocar cutdown technique via an infraumbilical incision. An 0 Vicryl farpob-ab-xupqy suture was placed on the fascia. The 5 mm 30 degree lens was inserted and no trauma secondary to the trocar insertion was noted. Three 5mm right upper quadrant trocars were inserted under direct vision. The patient was placed in reverse Trendelenburg [id number] position. The gallbladder was noted to be acutely inflamed with a lot of edema. There were greater omental adhesions taken down consistent with chronic cholecystitis. There was free fluid lateral to the liver that was suctioned dry. The gallbladder was tense and distended but we were able to grasp it. The fundus of the gallbladder was grasped and retracted over the liver, the infundibulum was grasped and retracted laterally for proper exposure of the cystic duct and artery. We were able to achieve a critical view of safety. We skeletonized the cystic duct and artery and continued the peritoneal dissection up the medial and lateral borders of the gallbladder. We had two distinct structures entering the gallbladder with segment 5 of the liver posterior. The cystic artery was clipped with hemo lock clips and divided with Metzenbaum scissors. This allowed further skeletonization of the cystic duct. A cholangiogram was obtained by placing a clip on the cystic duct next to the gallbladder, making a ductotomy with the laparoscopic Metzenbaum scissors and we inserted a yellow cholangiogram catheter into the cystic duct. The catheter was brought through the abdominal wall through a 14 gauge Angiocath in the right upper quadrant. The cholangiogram was normal. The left and right hepatic ducts, common hepatic duct and common bile duct were not dilated and there were no filling defects. The contrast flowed unobstructed into the duodenum. With this, the cholangiogram catheter was removed and the cystic duct was doubly clipped and divided with Metzenbaum scissors. The adhesions between the gallbladder and the liver were divided with hook cautery. We noticed blood pooling lateral to the liver and upon further inspection there was bleeding from the Angiocath insertion in the right upper quadrant for the cholangiogram catheter. We were able to control this with cautery. There was a hematoma under the peritoneum so the peritoneum was opened to allow this to drain. We irrigated this and suctioned it dry and inspected to ensure there was adequate hemostasis achieved. We were able to observe this for sometime at the end of the case to ensure that no further bleeding occurred. The gallbladder was placed into an endo-pouch and removed. All irrigation was suctioned dry from the right upper quadrant. The liver bed and clips were inspected and there was no bleeding or bile drainage noted. We inspected the abdominal wall hematoma in the right upper quadrant and this was not bleeding and stable. The trocars were removed, the pneumoperitoneum was released. The patient had more than usual oozing from the skin incisions and this required additional time for cautery. The 0 Vicryl nraqhi-et-foqiw suture was tied in the fascia and there were no palpable fascial defects. The skin incisions were closed using 4-0 Monocryl in a subcuticular manner. Dermabond glue was applied as a final dressing. The estimated blood loss was 100 cc. The instrument sponge and needle counts were all correct x2. The patient tolerated the procedure well and was extubated in the operating room and transported to the recovery area in stable condition. Complications: none Post-operative Condition: stable Plan for aftercare: PACU then floor Likely home later today
[2025-04-29] MEDS: ACETAMINOPHEN IV 1,000 MG/100 ML VIAL 400 MG IV (12:13)
--- NOTE | 2025-04-29 12:42 | PC.NURSE ---
Pt back to room from OR via bed. Denies pain, nausea, or shortness of breath. States she just feels gassy and that she is very tired. Dermabonded lap sites are CDI. SCD's on and running. Bed alarm on for safety. Pt agrees to call for assistance as needed.
--- NOTE | 2025-04-29 13:08 | PM.DS.IH.1 ---
History of Present Illness History of Present Illness Date Patient Seen: 04/29/25 Time Patient Seen: 01:00 Date of Onset of Symptoms: 04/28/25 Chief complaint: intense pain under ribs Narrative: Patient is a 24-year-old white female presented in the emergency room on 04/28/2025 with right upper quadrant pain with elevated bilirubin of 2.1 with elevated LFTs. Patient was admitted in the hospital was seen by Dr. Grant on 03/29/2024 patient underwent a laparoscopic cholecystectomy with OR fluoro cholangiogram and the surgery was unremarkable. Patient is doing well desires to be discharged. Patient was given normal postoperative instructions on lifting stairs walking driving diet bathing exercise infectious changes wound care. Prescription for hydrocodone 5 mg 10. Has been sent to her pharmacy. All questions were answered the patient's satisfaction. Patient was discharged on postoperative day 0. and improved condition. Discharge Providers Provider Date of admission: 04/28/25 23:18 Discharge Date: 04/29/25 Primary care physician: Javy VALENTIN Provider Discharge provider: Brien Whyte, Exam Vital Signs (past 8 hours): - 04/29/25 09:30 04/29/25 11:55 04/29/25 12:00 Temperature 98.7 F 97.5 F L Pulse Rate 88 79 85 Respiratory Rate 16 12 12 Blood Pressure 115/87 111/67 111/69 Pulse Oximetry 100 99 96 Oxygen Delivery Method Room Air Room Air Room Air Oxygen Flow Rate 04/29/25 12:05 04/29/25 12:11 04/29/25 12:16 Temperature 97.6 F Pulse Rate 87 79 89 Respiratory Rate 12 13 12 Blood Pressure 104/71 113/73 107/71 Pulse Oximetry 100 99 100 Oxygen Delivery Method Room Air Room Air Room Air Oxygen Flow Rate 04/29/25 12:30 Temperature 98.2 F Pulse Rate 64 Respiratory Rate 16 Blood Pressure 106/72 Pulse Oximetry 100 Oxygen Delivery Method Oxygen Flow Rate 0 Oxygen Delivery Method Room Air Oxygen Flow Rate 0 Narrative Exam Narrative: Patient is doing well postoperatively mild incisional discomfort incisions are clean and dry no sign infection or inflammation is noted. Patient was given normal postoperative instructions on lifting stairs walking driving diet bathing exercise infectious changes wound care follow back up with Dr. Grant in 1-2 weeks or return if any problems questions or concerns. Prescription for hydrocodone 5 mg 10. Have been sent to her pharmacy. Objective Labs 04/28/25 19:20 04/28/25 19:20 Labs: Laboratory Results - last 24 hr 04/28/25 04/28/25 19:20 20:30 WBC 9.5 RBC 4.54 Hgb 13.4 Hct 39.1 MCV 86.1 MCH 29.5 MCHC 34.3 RDW 12.7 Plt Count 165 Neut % (Auto) 66.2 Lymph % (Auto) 25.7 [place] % (Auto) 6.6 Eos % (Auto) 1.0 L Baso % (Auto) 0.5 Neut # (Auto) 6300 Lymph # (Auto) 2400 [place] # (Auto) 600 Eos # (Auto) 100 Baso # (Auto) 0 Sodium 140 Potassium 3.3 L Chloride 103 Carbon Dioxide 25 BUN 15 Creatinine 0.72 Estimated GFR > 60 BUN/Creatinine Ratio 20.8 Glucose 94 Calcium 9.6 Total Bilirubin 2.1 H AST 72 H ALT 35 H Alkaline Phosphatase 64 Total Protein 8.1 Albumin 4.9 Globulin 3.2 Albumin/Globulin Ratio 1.5 Lipase 113 Urine RBC None seen Urine WBC None seen Ur Squamous Epith Cells 1-5 /hpf Urine Bacteria None seen Urine Mucus 1+ H Vol Urine Centrifuged 10ml (spun) [facility] Medical History Irregular menstrual cycle (~2019) Irritable bowel syndrome (~2011) depression Anemia affecting first (~2006) Rh negative state in antepartum period Surgical History Anesthesia History of endoscopy (~2012) History of adenoidectomy (~2001) History of tonsillectomy (~2004) Family History Grandfather Prostate cancer Lung cancer Grandfather Prostate cancer Mother hemorrhage Grandmother Multiple sclerosis Social History marital status: number of children: 1 household members: spouse and children lives independently: Yes housing: house pets and animals: Yes (1 dog ) education level: high school occupational status: employed current occupational exposures/hazards: No special justin needs: No seatbelt use: always water heater temp set < 120 deg: Yes working smoke detector in home: Yes fire extinguisher in home: Yes carbon monox detector in home: Yes firearms in home: Yes firearms unloaded and locked: Yes do you feel safe at home: Yes Smoking Status: Never smoker second hand exposure: No alcohol intake: former substance use type: marijuana (previously) during the past year weight has: remained stable well-balanced diet: daily or most days daily servings fruits/ve-4 caffeine: Yes Type(s) of exercise: walking and running frequency: 3-4 times per week Discharge Plan Discharge Plan Patient Disposition: Home Provider Discharge Comment: Discharge postop lap jet Discharge orders & Medications Prescriptions: New hydrocodone-acetaminophen 5-325 mg tablet 1 tab PO Q6H PRN (Reason: pain) Qty: 10 0RF Follow up/Referrals: Javy Johnson [Primary Care Provider, Family Practice] Diet/Activity/Treatments Diet: Diet as Tolerated Skin/Wound/Dressing Care Report to your healthcare provider any signs of infection, such as:: chills, fever, night sweats, increased pain, unusual drainage and unusual redness Visit Report/Discharge Packet Instructions: DI for Prescription Opioid Use, DI for Laparoscopic Cholecystectomy Stand Alone Forms: Surgery Discharge Discharge Data Primary Care Provider: Javy Johnson PROFEE Charge Codes Discharge inpatient/observation: [id number]
[2025-04-29] MEDS: ONDANSETRON 4 MG ODT PO (13:22)
--- NOTE | 2025-04-29 16:15 | PC.NURSE ---
Pt is dressed and ready for discharge home with Spouse. IV has been removed. Went over d/c instructions with Pt and Spouse-discussed d/c meds, time of last dose, reviewed stroke education. Discussed s/s of infection, soft low residue diet, no carbonation, and drink plenty of fluids to prevent constipation or dehydration. No driving while on narcotics. Pt denied further questions and was taken out via w/c by [employer] to POV with Spouse and all belongings.
== END 2025-04-29 16:20 | disposition home or self-care (01) | DRG 419 ==
LOC: ED 23:16 → AC 23:19
PROVIDERS: Admitting Provider Surgery; Emergency Provider Emergency Medicine; Referring Provider Emergency Medicine; Visit Provider Surgery
PROC: 0FT44ZZ Resection of Gallbladder, Percutaneous Endoscopic Approach (ICD-10-PCS; CPT 47563; principal; 2025-04-29 09:45)
DX: K81.2 Acute cholecystitis with chronic cholecystitis (principal); Z83.79 Family history of other diseases of the digestive system
CPT/HCPCS: 36415; 74300; 76705; 80053; 81003; 81015; 81025; 83690; 85025; 93005; 96361; 96365; 96375; 99284; J0131; J0330; J1100; J1885; J2405; J2543; J2704; J3010; J3490; Q9967